=== PATIENT | female | born 1985 ===

== ENCOUNTER 2018-02-05 11:07 | Inpatient (IN) | payer OTHER ==
[2018-02-05 12:39] VITALS: BMI 30.7
[2018-02-05 14:05] LABS: BASO % 0.3 % (0.0-2.0); EOS # 0.1 K/uL (0.0-0.7); EOS % 0.8 % (0.0-4.0); HEMOGLOBIN 12.1 g/dL (12.0-16.0); LYMPH # 1.6 K/uL (1.0-4.3); LYMPH % 22.1 % (20.0-40.0); MEAN CELL VOLUME 90.7 fl (81.0-99.0); MEAN CORPUSCULAR HEMOGLOBIN 31.1 pg (27.0-31.0); MEAN CORPUSCULAR HGB CONC 34.3 g/dL (33.0-37.0); MEAN PLATELET VOLUME 8.3 fl (7.2-11.7); MONO # 0.5 K/uL (0.0-0.8); MONO % 6.8 % (0.0-10.0); NEUT # 5.1 K/uL (1.8-7.0); RBC 3.89 Mil/uL (3.80-5.20); RED CELL DISTRIBUTION WIDTH 14.5 % (11.5-14.5); WHITE BLOOD COUNT 7.2 K/uL (4.8-10.8)
[2018-02-05] MEDS ORDERED: Lactated Ringer's 1,000 ML IV SCH (14:15)
--- NOTE | 2018-02-05 15:42 | OBHP ---
Datetime: 02/05/2018 12:14 IP Adm Impression: Term, intrauterine IP Admit Plan: Admit to unit; Initiate labor induction protocol Admit Comment, IP Provider: 32 YO with IUP at EGA 37+ Wks AGUSTÍN by LMP with h/o GDM o n insulin, who presents to L_D sent by her provider due to oligohydramnios based on an MFM US done today. Patient states she had OB US done today in the AM showed EL 2.7. Patient reports whit cynthia mucus small vag discharge today in AM. Patient denies VB, Uterine contx, LOF, also she denies JACK, blurry vision, dizziness, CP,SOB, N/V, fever, dysuria or other acute medical complaint at this time. Patient reports +FM. ROS: unremarkable, except as per HPI OBGYN: x1 2013, Miscarriage 2017 with [facility]. GDM on insulin in current . PMH: GDM FMH: Denies ALL: NKA SURGH: None SOCHx: Denies ETOH/Drug/smoking MEDS: PNV, Oral Iron, Insulin SC TID LABS: HIV 01/28 neg, GBS 01/30 neg, Rubella +/immune, RPR nonreactive, ABO B+ ab neg. PE GEN: NAD HEENT: NCAT RESP: CTA b/l CV: RRR, S1 S2 normal ABD: Gravid PELVIC Exam: Cervix posterior, long and closed EXT: LE no edema A/P 32 YO @ 37+ wks GA GDMA2 for IOL secondary to oligohydramnios -Admit to L _ D -Monitor VS -Monitor FHR -Hydration -Initiate induction protocol -blood glucse q 2 hour sliding sace Case discussed with attending Maria Ines Diaz MD PGY1 gagree with aove @ 37+ wks GDMA2 on Insulin for IOL secondary to oligohydramnios admist cervidl blodo glucse contorl cont toco and efm analgesia FHR - Baseline A Provider: 140s Comments, ACOG Physical Exam: See triage comment IP Hx Assessment: The History has been Reviewed and is Current Vital Signs Provider: Reviewed; Within Normal Limits IP Chief Complaint: Scheduled induction of labor Dilatation, Provider: Roel
--- NOTE | 2018-02-05 15:45 | OBADHP ---
Datetime: 02/05/2018 12:14 Admit Comment, IP Provider: 32 YO with IUP at EGA 37+ Wks AGUSTÍN by LMP with h/o GDM o n insulin, who presents to L_D sent by her provider due to oligohydramnios based on an MFM US done today. Patient states she had OB US done today in the AM showed EL 2.7. Patient reports whit cynthia mucus small vag discharge today in AM. Patient denies VB, Uterine contx, LOF, also she denies JACK, blurry vision, dizziness, CP,SOB, N/V, fever, dysuria or other acute medical complaint at this time. Patient reports +FM. ROS: unremarkable, except as per HPI OBGYN: x1 2013, Miscarriage 2016 with [facility]. GDM on insulin in current . PMH: GDM FMH: Denies ALL: NKA SURGH: None SOCHx: Denies ETOH/Drug/smoking MEDS: PNV, Oral Iron, Insulin SC TID LABS: HIV 01/28 neg, GBS 01/30 neg, Rubella +/immune, RPR nonreactive, ABO B+ ab neg. PE GEN: NAD HEENT: NCAT RESP: CTA b/l CV: RRR, S1 S2 normal ABD: Gravid PELVIC Exam: Cervix posterior, long and closed EXT: LE no edema A/P 32 YO @ 37+ wks GA GDMA2 for IOL secondary to oligohydramnios -Admit to L _ D -Monitor VS -Monitor FHR -Hydration -Initiate induction protocol -blood glucse q 2 hour sliding sace Case discussed with attending Maria Ines Diaz MD PGY1 gagree with aove @ 37+ wks GDMA2 on Insulin for IOL secondary to oligohydramnios admist cervidl blodo glucse contorl cont toco and efm analgesia FHR - Baseline A Provider: 140s Comments, ACOG Physical Exam: See triage comment IP Hx Assessment: The History has been Reviewed and is Current Vital Signs Provider: Reviewed; Within Normal Limits IP Chief Complaint: Scheduled induction of labor Dilatation, Provider: 0 IP Adm Impression: Term, intrauterine IP Admit Plan: Admit to unit; Initiate labor induction protocol
[2018-02-06] MEDS ORDERED: Oxytocin 30 UNIT 30 UNITS/500 ML BAG IV ONE ×2 (05:22)
[2018-02-06] MEDS ORDERED: OXYTOCIN/0.9 % NS 20 UNIT/1,000 ML BAG IV SCH (05:30)
[2018-02-06] MEDS: Lactated Ringer's 1,000 ML IV SCH ×2 (06:11→07:37)
[2018-02-06] MEDS ORDERED: Fentanyl/Bupivacaine HCl 250 ML EPI ONE (07:37)
--- NOTE | 2018-02-06 09:49 | OBPN ---
Datetime: 02/06/2018 09:40 IP Progress Impression Other: Induction for GDM IP Procedures: Sterile Vag Exam IP Progress Plan: Cervical Ripening Membranes, Provider: Intact FHR - Baseline A Provider: 130's IP Progress Note Comment: 32 yo at 37+2 wks for induction of labor for GDM, requiring insuli n, comfortable w/ epidual S/p cervidil, 25 mcg vaginal miso placed at 0935 FHT reassuring NICHD Accel Fetus A IP Provider: [id number] FHR Category Provider Fetus A: Category I NICHD Variability Prov Fetus A: Moderate 6-25bpm Dilatation, Provider: 0 Effacement, Provider: 50 Station, Provider: -3 NICHD Decel Fetus A IP Provider: None Datetime: 02/05/2018 17:10 IP Progress Impression: Reassuring heart rate Datetime: 02/05/2018 12:14 Vital Signs Provider: Reviewed; Within Normal Limits
--- NOTE | 2018-02-06 19:47 | OBPN ---
Datetime: 02/06/2018 19:42 IP Progress Impression Other: Induction form oligohydramnios IP Procedures: Sterile Vag Exam IP Progress Plan: Induction Membranes, Provider: Intact Contraction Comments Provider: irregular FHR - Baseline A Provider: 130's IP Progress Note Comment: 32 yo at 37+2 wks for induction of labor for oligohydramnios s/p c ervidil, 25 mcg vag miso, 50 mcg vag miso, now starting pitocin FHT reassuring, GBS negative NICHD Accel Fetus A IP Provider: [id number] FHR Category Provider Fetus A: Category I NICHD Variability Prov Fetus A: Moderate 6-25bpm Dilatation, Provider: 1 Effacement, Provider: 70 Station, Provider: -3 NICHD Decel Fetus A IP Provider: None
--- NOTE | 2018-02-07 00:25 | OBPN ---
Datetime: 02/07/2018 00:10 IP Progress Impression Other: Induction for oligo IP Procedures: Sterile Vag Exam IP Progress Plan: Induction Membranes, Provider: Intact FHR - Baseline A Provider: 130's IP Progress Note Comment: 32 yo at 37+2 wks for induction for oligo, s/p cervidil, 25 vag mi so, 50 vag miso, then pitocin Pitocin to be turned off and cervidil will be placed for further ripening. GBS negative. FHT reassuring Vital Signs Provider: Reviewed NICHD Accel Fetus A IP Provider: [id number] FHR Category Provider Fetus A: Category I NICHD Variability Prov Fetus A: Moderate 6-25bpm Dilatation, Provider: 1 Effacement, Provider: 70 Station, Provider: -3 NICHD Decel Fetus A IP Provider: None
[2018-02-07] MEDS ORDERED: Oxycodone/Acetaminophen 5/325 mg Tab PO PRN ×4 (05:21→08:53)
[2018-02-07] MEDS ORDERED: Benzocaine/Menthol SPRAY TOP PRN ×2 (05:21→08:53)
--- NOTE | 2018-02-07 05:41 | OBDS ---
MATERNAL INFORMATION Provider Comments: 32 year old admitted for IOL secondary to GDMA2 on insulin therapy. Normal s pontaneous vaginal delivery of live male infact, position JULIAN over intact perineum with epidural anes thesia. Infant placed on maternal abdomen and delayed cord clamping was performed, cord blood collect ion per parents' request. No meconium or nuchal cord, Apgars 9_9. Spontaneous delivery of placenta wi th 3-vessel cord. Second degree laceration, repaired as per note. QBL 100cc. Mom and infant are in st able condition and will be recovered here in L_D. Miranda Silva MD OB Fellow LABOR SUMMARY EDC: 02/25/2018 00:00 No. Babies in Womb: 1 LABOR INFORMATION Cervical Ripening Agents: Cervidil (Annotations: inserted by Dr. Bowser ) Group B Beta Strep: Negative VAGINAL DELIVERY Episiotomy: None Laceration Extension: Second Degree Laceration Type: Perineal Laceration Repair: Yes Laceration Repair Note: A 2-0 Vicryl was used to repair the laceration in the usual fashion. Sponge Count Correct: Yes Sharps Count Correct: Yes BABY A INFORMATION Infant Delivery Date/Time: 02/07/2018 05:08 Method of Delivery: Vaginal Born in Route : No : N/A Forceps: N/A Vacuum Extraction: N/A Shoulder Dystocia : No SHOULDER DYSTOCIA BABY A Delivery Date/Time: 02/07/2018 05:08 INFORMATION BABY A Infant Sex: Male (Annotations: Data stored by [facility] on behalf of user) IDENTIFICATION/MEDS BABY A ID Band Number: [id number] WEIGHT/LENGTH BABY A Birthweight (gms): 2895 Weight (lb): 6 Weight (oz): 6
--- NOTE | 2018-02-08 11:27 | OBPPN ---
Datetime: 02/08/2018 11:23 PP Pain Prov: Within normal limits PP Abdomen/Uterus Prov: Normal PP Lochia Prov: Normal PP Extremities Prov: Normal PP Impression Prov: Normal progression PP Plan Prov: Continue present management PP Progress Note Prov: PPD 2 s/p , doing well, breast and bottle feeding Continue current care Vital Signs Provider PP: Reviewed
[2018-02-08 11:54] LABS: BASO % 0.3 % (0.0-2.0); EOS # 0.1 K/uL (0.0-0.7); EOS % 1.4 % (0.0-4.0); HEMOGLOBIN 10.8 g/dL (12.0-16.0); LYMPH # 1.9 K/uL (1.0-4.3); LYMPH % 24.6 % (20.0-40.0); MEAN CELL VOLUME 93.6 fl (81.0-99.0); MEAN CORPUSCULAR HGB CONC 33.2 g/dL (33.0-37.0); MEAN PLATELET VOLUME 8.1 fl (7.2-11.7); MONO # 0.4 K/uL (0.0-0.8); MONO % 4.8 % (0.0-10.0); NEUT # 5.3 K/uL (1.8-7.0); NEUT % 68.9 % (50.0-75.0); RBC 3.48 Mil/uL (3.80-5.20); RED CELL DISTRIBUTION WIDTH 14.4 % (11.5-14.5); WHITE BLOOD COUNT 7.7 K/uL (4.8-10.8)
--- NOTE | 2018-02-09 09:50 | OBDCSUM ---
Datetime: 02/09/2018 09:48 Discharged to, Provider: Home Follow up at, Provider: OB Disch Instr Activity: Normal activity Disch Instr Diet: Regular Discharge Instructions, Provider: Routine instructions given Discharge Diagnosis, Provider: Term Delivered Discharge Time: 02/09/2018 09:48 Follow up in weeks, Provider: 6 wks Disch Referrals: None Contraception discussed, Prov: No
--- NOTE | 2018-02-09 09:50 | OBPPN ---
Datetime: 02/09/2018 09:47 PP Pain Prov: Within normal limits PP Nausea Prov: Denies PP Flatus Prov: Yes PP Breasts Prov: Normal PP Heart Prov: Normal PP Lungs Prov: Normal PP Abdomen/Uterus Prov: Normal PP Lochia Prov: Normal PP Vulva/Perineum Prov: Normal PP CVA Tenderness Prov: Normal PP Extremities Prov: Normal PP Comments Phys Exam Prov: fundus firm under umbilicus PP Impression Prov: Normal progression PP Plan Prov: Continue present management; Discharge PP Progress Note Prov: Patient denies CP, no SOB, no N/V, tolerating PO diet, ambulating/voiding wel l, mild lochia, abdominal pain tolerable with meds A/P PPD #2 1. Discharge home 2. Discharge instructions reviewed IP PP Procedures: None
[2018-02-09 16:40] VITALS: BP 103/75; PULSE 80; RESP 20; TEMP 98.1; O2SAT 99
== END 2018-02-09 12:10 | disposition home or self-care (01) | DRG 807 ==
LOC: H.EROB2 11:07 → H.L&D 12:39 → H.OB/GYN 02-07 08:25
PROVIDERS: ADMIT Obstetrics & Gynecology; ATTEND Obstetrics & Gynecology
PROC: 10E0XZZ Delivery of Products of Conception, External Approach (ICD-10-PCS; principal; 2018-02-05)
PROC: 0KQM0ZZ Repair Perineum Muscle, Open Approach (ICD-10-PCS; 2018-02-05)
PROC: 4A1HXCZ Monitoring of Products of Conception, Cardiac Rate, External Approach (ICD-10-PCS; 2018-02-05)
DX: O41.03X0 Oligohydramnios, third trimester, not applicable or unspecified (principal); Z37.0 Single live birth; O70.1 Second degree perineal laceration during delivery; O24.424 Gestational diabetes mellitus in childbirth, insulin controlled; Z3A.37 37 weeks gestation of pregnancy